=== PATIENT | male | born 1965 | race Caucasian/White ===

== ENCOUNTER 2022-04-21 10:23 | Day surgery (SDC) | payer OTHER ==
[2022-04-11 15:50] VITALS: BMI 28.1
[2022-04-21] MEDS ORDERED: DEXAMETHASONE SOD PHOSPHATE 10 MG/1 ML VIAL ONE (12:18)
[2022-04-21] MEDS ORDERED: ROPIVACAINE HCL/PF 100 MG/20 ML VIAL ONE (12:18)
[2022-04-21] MEDS ORDERED: MIDAZOLAM HCL 2 MG/2 ML SINGLE DOSE VIAL ONE (12:18)
[2022-04-21] MEDS ORDERED: PROPOFOL 20 ML ONE (12:32)
[2022-04-21] MEDS ORDERED: DEXAMETHASONE SOD PHOSPHATE 4 MG/1 ML VIAL ONE (13:50)
[2022-04-21] MEDS ORDERED: ONDANSETRON 4 MG/2 ML VIAL ONE (13:50)
[2022-04-21] MEDS ORDERED: KETOROLAC TROMETHAMINE 30 MG/1 ML VIAL ONE (13:50)
[2022-04-21] MEDS ORDERED: TRANEXAMIC ACID 1000 MG/10 ML VIAL ONE (13:50)
[2022-04-21] MEDS ORDERED: ceFAZolin SODIUM 1 GM VIAL ONE (13:50)
[2022-04-21] MEDS ORDERED: PROMETHAZINE HCL 25 MG/1 ML VIAL IVPUSH PRN (14:59)
[2022-04-21] MEDS ORDERED: oxyCODONE HCL 5 MG TABLET PO PRN (14:59)
[2022-04-21] MEDS ORDERED: ONDANSETRON 4 MG/2 ML VIAL IVPUSH PRN (14:59)
[2022-04-21 16:07] VITALS: BP 140/78; TEMP 97.4
[2022-04-21 16:08] VITALS: PULSE 70
== END 2022-04-21 15:45 | disposition home or self-care (01) ==
LOC: FASU 10:23
PROVIDERS: ATTEND Orthopaedic Surgery
PROC: 0LM20ZZ Reattachment of Left Shoulder Tendon, Open Approach (ICD-10-PCS; principal; 2022-04-21 12:56)
PROC: 0RBK4ZZ Excision of Left Shoulder Joint, Percutaneous Endoscopic Approach (ICD-10-PCS; 2022-04-21 12:56)
DX: M75.122 Complete rotator cuff tear or rupture of left shoulder, not specified as traumatic (principal); M75.42 Impingement syndrome of left shoulder; M66.812 Spontaneous rupture of other tendons, left shoulder; M75.52 Bursitis of left shoulder; M65.812 Other synovitis and tenosynovitis, left shoulder; Z53.33 Arthroscopic surgical procedure converted to open procedure
CPT/HCPCS: 94760; J1100